=== PATIENT | female | born 1955 | race African-American/Black ===

== ENCOUNTER 2021-09-21 10:21 | Day surgery (SDC) | payer OTHER ==
[~2021-09-21] VITALS: Ht 162.6 cm; Wt 61.6 kg
[2021-09-21 12:17] VITALS: BP 106/75; PULSE 69; TEMP 98.2
[2021-09-21] MEDS ORDERED: HCTZ12.5TAB PO (12:43)
[2021-09-21] MEDS ORDERED: VITAMIN D31000 I1 PO (12:44)
[2021-09-21] MEDS ORDERED: LIPITOR 10MG10 MG PO (12:44)
[2021-09-21 13:30] VITALS: BP 105/64; PULSE 63
--- NOTE | 2021-09-21 13:30 | NUR ---
PATIENT RETURNS TO BAY [facility] PER CART AND TRANSFERS FROM CART TO RECLINER WITH TWO PERSON ASSIST. IV FLUIDS INFUSING. CALL LIGHT IN REACH. ALLLOWED TO REST. SON IN ROOM.
[2021-09-21 13:40] VITALS: BP 103/73; PULSE 66
--- NOTE | 2021-09-21 13:40 | NUR ---
EATING MUFFINS AND SIPPING ON HOT CHOCOLATE. DENIES PAIN OR NAUSEA.
[2021-09-21 13:50] VITALS: BP 118/75; PULSE 65
--- NOTE | 2021-09-21 13:50 | NUR ---
IV DISCONTINUED AND SITE IS FREE OF REDNESS OR SWELLING. TOLERATED SNACK WELL.
--- NOTE | 2021-09-21 14:07 | NUR ---
DISMISSAL INSTRUCTIONS GIVEN AND VOICES UNDERSTANDING OF THESE. DR. RICHARD WAS HERE AND ALL QUESTIONS ANSWERED.
--- NOTE | 2021-09-21 14:11 | NUR ---
PATIENT DISMISSED TO HOME DRIVEN BY SPOUSE AND TAKEN TO THE FRONT DOOR PER WHEELCHAIR AND ASSISTED INTO CAR WITH DISMISSAL INSTRUCTIONS IN HAND.
== END 2021-09-21 14:11 | disposition home or self-care (01) ==
LOC: SDCO 10:21
DX: Z12.11 Encounter for screening for malignant neoplasm of colon (principal); Z86.010 Personal history of colon polyps; Z28.310 Unvaccinated for COVID-19; Z28.9 Immunization not carried out for unspecified reason
CPT/HCPCS: J2704; J7030